=== PATIENT | female | born 1965 | race Caucasian/White ===

== ENCOUNTER 2017-10-14 07:54 | Inpatient (IN) | payer OTHER, BC ==
[2017-10-14] VITALS (14 sets, daily range): BP systolic 98–142; BP diastolic 54–70; PULSE 61–84; RESP 16–18; TEMP 94.3–100.9; O2SAT 99–100
[~2017-10-14] VITALS: Ht 167.6 cm; Wt 79.6 kg
[2017-10-14] MEDS ORDERED: ETOMIDATE 20 MG/10 ML VIAL ONE (07:58)
[2017-10-14] MEDS ORDERED: PROPOFOL 1000 MG/100 ML INJ 100 ML ONE (08:06)
[2017-10-14 08:16] LABS: AUTOMATED NEUTROPHIL # 8.2 TH/MM3 (1.8-7.7); BASOPHIL # 0.1 TH/MM3 (0-0.2); BASOPHIL % 0.7 % (0.0-2.0); EOSINOPHIL # 0.7 TH/MM3 (0-0.4); EOSINOPHIL % 4.5 % (0.0-4.0); HEMATOCRIT 31.7 % (35.0-46.0); HEMOGLOBIN 9.7 GM/DL (11.6-15.3); LYMPH % 33.4 % (9.0-44.0); LYMPHOCYTE # 5.1 TH/MM3 (1.0-4.8); MEAN CELL VOLUME 62.7 FL (80.0-100.0); MEAN CORPUSCULAR HEMOGLOBIN 19.2 PG (27.0-34.0); MEAN CORPUSCULAR HGB CONC 30.7 % (32.0-36.0); MEAN PLATELET VOLUME 9.1 FL (7.0-11.0); MONO % 7.7 % (0.0-8.0); MONOCYTE # 1.2 TH/MM3 (0-0.9); NEUT % 53.7 % (16.0-70.0); PLATELET COUNT 345 TH/MM3 (150-450); RED BLOOD COUNT 5.05 MIL/MM3 (4.00-5.30); RED CELL DISTRIBUTION WIDTH 16.7 % (11.6-17.2); WHITE BLOOD COUNT 15.2 TH/MM3 (4.0-11.0)
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
[2017-10-14] MEDS ORDERED: GELFOAM SIZE 100 ONE (08:29)
[2017-10-14] MEDS ORDERED: BUPIVACAINE/EPINEPHRINE 0.5% PF 30 ML VIAL ONE (08:29)
[2017-10-14] MEDS ORDERED: GENTAMICIN SULFATE 80 MG/2 ML VIAL ONE (08:29)
[2017-10-14] MEDS ORDERED: THROMBIN (TOPICAL) 5,000 UNIT VIAL ONE (08:32)
[2017-10-14 08:34] LABS: INTERNATIONAL NORMALIZED RATIO 1.1 RATIO; PROTHROMBIN TIME - PATIENT 10.7 SEC (9.8-11.6)
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
[2017-10-14] MEDS ORDERED: IOHEXOL 350 MG/ML 10 ML VIAL (for RAD DIAG) IVCONTRAST ONE (08:48)
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
[2017-10-14] MEDS ORDERED: levETIRAcetam 500 MG/5 ML VIAL IV ONE (08:55)
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
[2017-10-14] MEDS: levETIRAcetam INJ 500 MG in SODIUM CHLORIDE 0.9% INJ 100 ML IV SCH ×2 (08:59→21:41)
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
[2017-10-14] MEDS ORDERED: POTASSIUM CHLOR 20 MEQ PREMIX 100 ML IV PRN (10:00)
[2017-10-14] MEDS ORDERED: BISACODYL 10 MG SUPP RECTAL PRN (10:00)
[2017-10-14] MEDS ORDERED: LACTULOSE SYRUP 20 GM/30 ML CUP PO PRN (10:00)
[2017-10-14] MEDS ORDERED: SENNOSIDES 8.6 MG TAB PO PRN (10:00)
[2017-10-14] MEDS ORDERED: ALUMINUM/MAGNESIUM/SIMETH 30 ML CUP PO PRN (10:00)
[2017-10-14] MEDS ORDERED: MAGNESIUM HYDROXIDE SUSP 30 ML CUP PO PRN (10:00)
[2017-10-14] MEDS ORDERED: ACETAMINOPHEN 325 MG TAB PO PRN (10:00)
[2017-10-14] MEDS ORDERED: LABETALOL HCL 100 MG/20 ML VIAL IV PUSH PRN (10:00)
[2017-10-14] MEDS ORDERED: CALCIUM GLUCONATE INJ 1 GM in SODIUM CHLORIDE 0.9% INJ 100 ML IV PRN (10:00)
[2017-10-14] MEDS ORDERED: MAGNESIUM SULFATE INJ 2 GM in SODIUM CHLORIDE 0.9% INJ 100 ML IV PRN (10:00)
[2017-10-14] MEDS ORDERED: LORazepam 2 MG/ML VIAL IV PUSH PRN (10:00)
[2017-10-14] MEDS ORDERED: SODIUM CHLORIDE 0.9% FLUSH 10 ML FLUSH IV FLUSH PRN ×2 (10:00→10:45)
[2017-10-14] MEDS ORDERED: RESP: ALBUTEROL 2.5 MG/3 ML NEB (PRN) NEB (10:00)
--- NOTE | 2017-10-14 10:07 | PD.OP ---
Operative Report Date of Surgery: Oct 14, 2017 Preoperative Diagnosis: Severe traumatic brain injury with a large acute left frontotemporoparietal subdural hemorrhage with mass-effect and midline shift to along with herniation ; cerebral contusions with traumatic subarachnoid hemorrhage and diffuse cerebral swelling Postoperative Diagnosis: Same Procedure: Left craniotomy for acute subdural hemorrhage evacuation; left decompressive hemicraniectomy with expansive dural patch graft; ventriculostomy placement; microsurgical technique Anesthesia: General endotracheal by Ginger matute Surgeon: Pete Ordaz MD Superintendent Renting Managing(s): Cara Cano Operation and Findings: Following initiation of a general endotracheal anesthesia the patient had invasive lines and Cervantes catheter in place along with the sequential compression device. Ancef 2 g and Keppra 1 g along with the mannitol 50 g was administered intravenously and she was positioned with the left side up on a shoulder roll and head secured on a horseshoe headrest. The left fronto temporal parietal areas shaved and prepped with ChloraPrep and sterilely draped in the usual sterile fashion. A curvilinear reverse question kojo trauma incision was then made after infiltrating the scalp was 0.5% Marcaine with epinephrine solution a skin incision made extending onto the galea. Nguyen clips were used at the scalp edges for hemostasis and the flap retracted with hooks. With an automated destination coordinator katie hole was made in the left inferior temporal and frontal areas and with the craniotome the bone flap elevated exposing the frontal temporal and parietal areas. The dura was opened in a cruciate form and large acute subdural hemorrhage under pressure was identified and evacuated. There was a mid temporal pedal vein she was also noted to be actively bleeding which was cauterized for hemostasis. Bone holes were placed at the craniotomy edges and for Nurolon circumferential dural tacking sutures placed for hemostasis. Moderate degree of brain swelling was noted along the temporal lobe contusions. I elected to leave the bone flap out in order to compensate for the brain swelling which is likely to worsen over the next few days. A 10 mm MARYAM drain was and also place which was exited through a separate site and secured to the scalp. Left frontal ventriculostomy was also placed today with the blood-tinged CSF expressed and was tunneled under the scalp with a trocar and secured the exit site with 4 Nurolon stitches. DuraGen synthetic dural patch graft was used to cover the durotomy and allow for brain swelling. The temporalis muscle fascia and galea was then approximated using 2-0 Vicryl Sutures and final scalp closure was with saw. A sterile non-pressure dressing was then applied and the patient taken to the surgical intensive care unit. There were no intraoperative complications and all sponge and needle count was correct at the end of the procedure. Estimated blood loss about 200 cc. Pete Ordaz MD Oct 14, 2017 10:07
[2017-10-14] MEDS ORDERED: CHLORHEXIDINE GLUCONATE 2 % 1 PACK (2 CLOTHS) TOP PRN (10:45)
[2017-10-14] MEDS ORDERED: ENALAPRILAT 1.25 MG/ML VIAL IV PUSH PRN (10:45)
[2017-10-14] MEDS ORDERED: ONDANSETRON HCL 4 MG/2 ML VIAL IV PUSH PRN (10:45)
[2017-10-14] MEDS ORDERED: NURSING INFORMATION XX SCH (10:45)
[2017-10-14] MEDS ORDERED: MIDAZOLAM HCL 2 MG/2 ML VIAL ONE (11:04)
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
[2017-10-14] MEDS: 3% SALINE INJ 500 ML IV SCH ×2 (11:20→20:00)
[2017-10-14] MEDS ORDERED: DOCUSATE SODIUM 100 MG CAP PO SCH (11:30)
[2017-10-14] MEDS ORDERED: NOREPINEPHRINE 4 MG/4 ML AMP ONE (11:36)
--- NOTE | 2017-10-14 11:37 | RADRPT ---
EXAM DATE: 10/14/2017 11:23 AM EDT AGE/SEX: 89 years / Female INDICATIONS: Respiratory distress. CLINICAL DATA: This is the patient's subsequent encounter. Patient reports that signs and symptoms h ave been present for 2 days and indicates a pain score of Nonresponsive. MEDICAL/SURGICAL HISTORY: Non-responsive. Non-responsive. COMPARISON: [facility] – [place], CHEST SINGLE AP, 10/14/2017. . FINDINGS: Interval repositioning of the ET tube with tip now near the clavicles. Left subclavian central line w ith tip in the proximal SVC. Mild airspace disease in the left lower lung zone. No significant pneumo thorax. Bony thorax is grossly intact. CONCLUSION: 1. ETT now in good position. 2. Left subclavian central line in the SVC. 3. Left lower lung zone airspace disease likely reflecting atelectasis/contusions. 4. No significant pneumothorax. Electronically signed by: Favian Dan MD 10/14/2017 11:36 AM EDT
[2017-10-14] MEDS ORDERED: TERBUTALINE INJ 1 MG/ML AMP SQ PRN (11:45)
[2017-10-14] MEDS ORDERED: NOREPINEPHRINE INJ 4 MG in SODIUM CHLOR 0.9% 250 ML INJ 246 ML IV PRN (11:45)
[2017-10-14] MEDS ORDERED: SODIUM CHLOR 0.9% 1000 ML INJ 1,000 ML IV ONE ×3 (11:45→15:45)
[2017-10-14] MEDS ORDERED: PHENYLEPHRINE HCL 10 MG/ML VIAL IV ONE (12:00)
[2017-10-14] MEDS ORDERED: PHENYLEPH/NS 1000 MCG/10 ML SYR IV ONE (12:00)
[2017-10-14] MEDS ORDERED: ceFAZolin INJ 1,000 MG VIAL IV ONE (12:00)
[2017-10-14] MEDS ORDERED: ROCURONIUM INJ 50 MG/5 ML SYRINGE IV PUSH ONE (12:00)
[2017-10-14] MEDS ORDERED: DEXAMETHASONE SOD PHOS 4 MG/ML VIAL IV ONE (12:00)
[2017-10-14 13:42] LABS: HEMATOCRIT 27.1 % (35.0-46.0); HEMOGLOBIN 8.3 GM/DL (11.6-15.3); MEAN CELL VOLUME 61.9 FL (80.0-100.0); MEAN CORPUSCULAR HEMOGLOBIN 18.9 PG (27.0-34.0); MEAN CORPUSCULAR HGB CONC 30.6 % (32.0-36.0); MEAN PLATELET VOLUME 8.7 FL (7.0-11.0); PLATELET COUNT 336 TH/MM3 (150-450); RED BLOOD COUNT 4.38 MIL/MM3 (4.00-5.30); RED CELL DISTRIBUTION WIDTH 16.3 % (11.6-17.2); WHITE BLOOD COUNT 23.4 TH/MM3 (4.0-11.0)
[2017-10-14 14:17] LABS: BICARBONATE 19.2 MEQ/L (21.0-32.0); CREATININE 0.83 MG/DL (0.50-1.00); MAGNESIUM 1.6 MG/DL (1.5-2.5)
[2017-10-14 14:34] LABS: CALCIUM-PROTEIN CORRECTED 7.8 MG/DL (8.5-10.1); TOTAL PROTEIN 5.5 GM/DL (6.4-8.2)
[2017-10-14] MEDS: PANTOPRAZOLE SODIUM 40 MG VIAL IVP SCH (15:13)
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
[2017-10-14] MEDS ORDERED: fentaNYL DRIP 250 ML IV PRN (16:15)
[2017-10-14] MEDS ORDERED: MULT-65 PO (16:19)
[2017-10-14] MEDS ORDERED: IRON1TAB7 PO (16:19)
[2017-10-14] MEDS: SODIUM CHLOR 0.9% 1000 ML INJ 1,000 ML IV SCH (16:45)
[2017-10-14] MEDS: NOREPINEPHRINE INJ 4 MG in SODIUM CHLOR 0.9% 250 ML INJ 246 ML IV PRN (17:15)
[2017-10-14] MEDS ORDERED: RASS Change Order XX ONE (17:45)
[2017-10-14] MEDS ORDERED: ACETAMINOPHEN 1000 MG/100 ML 100 ML IV PRN (19:00)
[2017-10-14] MEDS: PROPOFOL 1000 MG/100 ML IV PRN (19:00)
[2017-10-14] MEDS: DOCUSATE SODIUM 50 MG/SENNA 8.6 MG TAB PO SCH (20:24)
[2017-10-14] MEDS: SODIUM CHLORIDE 0.9% FLUSH 10 ML FLUSH IV FLUSH SCH (21:00)
[2017-10-14] MEDS: BACITRACIN TOP OINT 15 GM TUBE TOP SCH (21:00)
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
[2017-10-15] VITALS (20 sets, daily range): BP systolic 104–140; BP diastolic 50–62; PULSE 50–76; RESP 16–18; TEMP 93.9–98.6; O2SAT 93–100
[2017-10-15] MEDS: NOREPINEPHRINE INJ 4 MG in SODIUM CHLOR 0.9% 250 ML INJ 246 ML IV PRN ×2 (01:58→19:41)
[2017-10-15] MEDS ORDERED: ATROPINE SULFATE 1 MG/10 ML SYRINGE ONE ×2 (03:38→07:14)
[2017-10-15] MEDS: CHLORHEXIDINE GLUCONATE 2 % 1 PACK (2 CLOTHS) TOP SCH (04:00)
[2017-10-15] MEDS: SODIUM CHLOR 0.9% 1000 ML INJ 1,000 ML IV SCH ×2 (04:15→19:35)
[2017-10-15] MEDS: PROPOFOL 1000 MG/100 ML IV PRN (06:00)
[2017-10-15] MEDS: 3% SALINE INJ 500 ML IV SCH ×2 (06:00→16:00)
[2017-10-15 06:05] LABS: AUTOMATED NEUTROPHIL # 11.5 TH/MM3 (1.8-7.7); BASOPHIL % 0.4 % (0.0-2.0); EOSINOPHIL % 0.1 % (0.0-4.0); HEMATOCRIT 27.9 % (35.0-46.0); HEMOGLOBIN 8.9 GM/DL (11.6-15.3); LYMPH % 5.7 % (9.0-44.0); LYMPHOCYTE # 0.8 TH/MM3 (1.0-4.8); MEAN CELL VOLUME 66.9 FL (80.0-100.0); MEAN CORPUSCULAR HEMOGLOBIN 21.5 PG (27.0-34.0); MEAN CORPUSCULAR HGB CONC 32.1 % (32.0-36.0); MONO % 7.7 % (0.0-8.0); NEUT % 86.1 % (16.0-70.0); PLATELET COUNT 165 TH/MM3 (150-450); RED BLOOD COUNT 4.17 MIL/MM3 (4.00-5.30); RED CELL DISTRIBUTION WIDTH 21.3 % (11.6-17.2); WHITE BLOOD COUNT 13.4 TH/MM3 (4.0-11.0)
[2017-10-15] MEDS ORDERED: PHENYLEPHRINE HCL 10 MG/ML VIAL ONE (06:24)
[2017-10-15 06:31] LABS: BICARBONATE 20.1 MEQ/L (21.0-32.0); CREATININE 0.68 MG/DL (0.50-1.00); MAGNESIUM 2.4 MG/DL (1.5-2.5)
[2017-10-15 06:43] LABS: CALCIUM-PROTEIN CORRECTED 8.2 MG/DL (8.5-10.1); TOTAL PROTEIN 4.9 GM/DL (6.4-8.2)
[2017-10-15] MEDS ORDERED: POTASSIUM PHOSPHATE INJ 30 MMOL in SODIUM CHLOR 0.9% 250 ML INJ 250 ML IV PRN (08:00)
[2017-10-15] MEDS ORDERED: POTASSIUM PHOSPHATE MONOBASIC 500 MG TAB PO PRN (08:00)
[2017-10-15] MEDS ORDERED: MAGNESIUM OXIDE 400 MG TAB PO PRN (08:00)
[2017-10-15] MEDS ORDERED: POTASSIUM CHLORIDE 25 MEQ EFFERVESCENT TAB PO PRN (08:00)
[2017-10-15] MEDS ORDERED: MAGNESIUM SULFATE INJ 2 GM in SODIUM CHLORIDE 0.9% INJ 96 ML IV PRN (08:00)
[2017-10-15] MEDS ORDERED: SODIUM PHOSPHATE INJ 30 MMOL in SODIUM CHLOR 0.9% 250 ML INJ 240 ML IV PRN (08:00)
[2017-10-15] MEDS ORDERED: MAGNESIUM SULFATE INJ 4 GM in SODIUM CHLORIDE 0.9% INJ 92 ML IV PRN (08:00)
[2017-10-15] MEDS ORDERED: POTASSIUM PHOSPHATE MONOBASIC 500 MG TAB PO/TUBE PRN (08:00)
[2017-10-15] MEDS ORDERED: POTASSIUM CHLOR 20 MEQ PREMIX 100 ML IV PRN ×2 (08:00)
[2017-10-15] MEDS ORDERED: POTASSIUM CHLOR 40 MEQ PREMIX 100 ML IV PRN (08:00)
[2017-10-15] MEDS: SODIUM CHLORIDE 0.9% FLUSH 10 ML FLUSH IV FLUSH SCH ×2 (09:00→20:25)
[2017-10-15] MEDS: BACITRACIN TOP OINT 15 GM TUBE TOP SCH ×2 (09:00→20:26)
[2017-10-15] MEDS ORDERED: PANTOPRAZOLE SODIUM 40 MG VIAL IVP SCH (09:00)
[2017-10-15] MEDS: DOCUSATE SODIUM 50 MG/SENNA 8.6 MG TAB PO SCH ×2 (09:00→20:25)
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
[2017-10-15] MEDS ORDERED: DOPamine 800 MG/500 ML INJ 500 ML IV PRN (09:45)
[2017-10-15] MEDS ORDERED: SODIUM CHLOR 0.9% 250 ML INJ 250 ML IV ONE (09:45)
[2017-10-15] MEDS ORDERED: TERBUTALINE INJ 1 MG/ML AMP SQ PRN (09:45)
[2017-10-15] MEDS ORDERED: ATROPINE SULFATE 1 MG/10 ML SYRINGE IV STA (10:10)
[2017-10-15 11:41] LABS: PHOSPHORUS 1.6 MG/DL (2.5-4.9)
[2017-10-15 11:43] LABS: TROPONIN I LESS THAN 0.02 NG/ML (0.02-0.05)
[2017-10-15] MEDS: PANTOPRAZOLE SODIUM 40 MG VIAL IVP SCH (12:05)
[2017-10-15] MEDS: levETIRAcetam INJ 500 MG in SODIUM CHLORIDE 0.9% INJ 100 ML IV SCH ×2 (12:06→20:58)
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
[2017-10-15] MEDS: CHLORHEXIDINE 0.12% (ORAL KIT) 15 ML CUP MT SCH (20:25)
[2017-10-16] VITALS (17 sets, daily range): BP systolic 123–134; BP diastolic 57–64; PULSE 53–62; RESP 16; TEMP 96.8–98.4; O2SAT 98–100
[2017-10-16] MEDS: CHLORHEXIDINE GLUCONATE 2 % 1 PACK (2 CLOTHS) TOP SCH (02:43)
[2017-10-16] MEDS ORDERED: DOPamine 400 MG/250 ML INJ 250 ML IV PRN (03:30)
[2017-10-16 05:15] LABS: HEMATOCRIT 31.7 % (35.0-46.0); HEMOGLOBIN 10.3 GM/DL (11.6-15.3); MEAN CELL VOLUME 70.7 FL (80.0-100.0); MEAN CORPUSCULAR HEMOGLOBIN 22.9 PG (27.0-34.0); MEAN CORPUSCULAR HGB CONC 32.4 % (32.0-36.0); MEAN PLATELET VOLUME 8.8 FL (7.0-11.0); PLATELET COUNT 151 TH/MM3 (150-450); RED BLOOD COUNT 4.49 MIL/MM3 (4.00-5.30); RED CELL DISTRIBUTION WIDTH 24.8 % (11.6-17.2); WHITE BLOOD COUNT 14.6 TH/MM3 (4.0-11.0)
[2017-10-16] MEDS: SODIUM CHLOR 0.9% 1000 ML INJ 1,000 ML IV SCH (05:15)
[2017-10-16 05:30] LABS: CALCIUM 7.4 MG/DL (8.5-10.1); CREATININE 0.51 MG/DL (0.50-1.00)
[2017-10-16 05:56] LABS: CALCIUM-PROTEIN CORRECTED 8.2 MG/DL (8.5-10.1); TOTAL PROTEIN 5.6 GM/DL (6.4-8.2)
[2017-10-16] MEDS: CHLORHEXIDINE 0.12% (ORAL KIT) 15 ML CUP MT SCH ×2 (07:49→20:00)
[2017-10-16] MEDS: POTASSIUM CHLOR 40 MEQ PREMIX 100 ML IV PRN (07:49)
[2017-10-16] MEDS: BACITRACIN TOP OINT 15 GM TUBE TOP SCH ×2 (09:00→21:00)
[2017-10-16] MEDS ORDERED: LIDOCAINE 1%/EPINEPHrine 1:100,000 SOLN 30 ML VIAL INFIL ONE (09:45)
[2017-10-16] MEDS: SODIUM CHLORIDE 0.9% FLUSH 10 ML FLUSH IV FLUSH SCH ×2 (09:48→21:00)
[2017-10-16] MEDS: PANTOPRAZOLE SODIUM 40 MG VIAL IVP SCH (09:48)
[2017-10-16] MEDS: levETIRAcetam INJ 500 MG in SODIUM CHLORIDE 0.9% INJ 100 ML IV SCH ×2 (09:48→21:00)
[2017-10-16] MEDS: DOCUSATE SODIUM 50 MG/SENNA 8.6 MG TAB PO SCH ×2 (09:48→21:00)
[2017-10-16] MEDS ORDERED: GLYCOPYRROLATE 0.2 MG/ML VIAL IV PUSH PRN (10:15)
[2017-10-16] MEDS ORDERED: LIDOCAINE 1%/EPINEPHrine 1:100,000 SOLN 30 ML VIAL ONE (10:21)
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
--- NOTE | 2017-10-16 16:39 | ECHRPT ---
Indication: BLUNT FORCE TRAUMA, BRADYCARDIA CONCLUSIONS Normal left ventricular size. Wall thickness is normal. The left ventricular systolic function is hyperdynamic with an estimated ejection fraction in the ra nge of 65- 70% Posterior mitral valve leaflet prolapse. Mild mitral valve regurgitation. There is mild tricuspid valve regurgitation. The estimated pulmonary arterial pressure is 46 mmHg. BP: / HR: Rhythm: Sinus MEASUREMENTS (Male / Female) Normal Values Technical Quality:Fair 2D ECHO LV Diastolic Diameter PLAX 4.6 cm 4.2 - 5.9 / 3.9 - 5.3 cm LV Systolic Diameter PLAX 3.1 cm IVS Diastolic Thickness 0.8 cm 0.6 - 1.0 / 0.6 - 0.9 cm LVPW Diastolic Thickness 0.8 cm 0.6 - 1.0 / 0.6 - 0.9 cm LV Relative Wall Thickness 0.3 RV Internal Dim ED PLAX 1.7 cm LVOT Diameter 2.1 cm Aortic Root Diameter 2.7 cm LA Systolic Diameter LX 2.8 cm 3.0 - 4.0 / 2.7 - 3.8 cm DOPPLER AV Peak Velocity 159.0 cm/s AV Peak Gradient 10.1 mmHg AV Mean Gradient 5.0 mmHg AV Velocity Time Integral 35.1 cm LVOT Peak Velocity 113.0 cm/s LVOT Peak Gradient 5.1 mmHg LVOT Velocity Time Integral 23.3 cm AV Area Cont Eq vti 2.3 cm AV Area Cont Eq pk 2.5 cm Mitral E Point Velocity 112.0 cm/s Mitral A Point Velocity 99.7 cm/s Mitral E to A Ratio 1.1 LV E' Lateral Velocity 12.6 cm/s Mitral E to LV E' Lateral Ratio 8.9 LV E' Septal Velocity 10.2 cm/s Mitral E to LV E' Septal Ratio 11.0 TR Peak Velocity 300.0 cm/s TR Peak Gradient 36.0 mmHg Right Atrial Pressure 10.0 mmHg Pulmonary Artery Systolic Pressu 46.0 mmHg Right Ventricular Systolic Press 46.0 mmHg PV Peak Velocity 44.4 cm/s PV Peak Gradient 0.8 mmHg FINDINGS LEFT VENTRICLE Normal left ventricular size. Wall thickness is normal. The left ventricular systolic function is hyperdynamic with an estimated ejection fraction in the ra nge of 65- 70%. RIGHT VENTRICLE Normal right ventricular size and systolic function. LEFT ATRIUM The left atrial size is normal. RIGHT ATRIUM The right atrial size is normal. ATRIAL SEPTUM No atrial level shunt is demonstrated by color flow Doppler interrogation. AORTA The aortic root and proximal ascending aorta are normal in size on limited imaging. MITRAL VALVE Posterior mitral valve leaflet prolapse. Mild mitral valve regurgitation. AORTIC VALVE Trileaflet aortic valve. No aortic valve stenosis or regurgitation. TRICUSPID VALVE There is mild tricuspid valve regurgitation. The estimated pulmonary arterial pressure is 46 mmHg. PULMONARY VALVE No pulmonary valve regurgitation or stenosis. VESSELS The inferior vena cava was not well visualized. PERICARDIUM No pericardial effusion. Boom Davis MD, FACC, FSCAI (Electronically Signed) Final Date:16 October 2017 16:38
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
[2017-10-16] MEDS: oxyCODONE HCL ORAL CONC 5 MG/0.25 ML SYRINGE PO PRN (21:01)
--- NOTE | 2017-10-16 21:45 | EKG ---
Date Performed: 10/15/2017 Time Performed: 11:45:33 PTAGE: 52 years EKG: Sinus rhythm NORMAL ECG Since the PREVIOUS TRACING , no significant change noted DOCTOR: Mariposa Bull Interpretating Date/Time 10/16/2017 21:45:09
--- NOTE | 2017-10-16 21:50 | EKG ---
Date Performed: 10/15/2017 Time Performed: 10:02:30 PTAGE: 52 years EKG: Sinus bradycardia with sinus arrhythmia. Prolonged QT interval Borderline ECG NO PREVIOUS TRACING DOCTOR: Mariposa Bull Interpretating Date/Time 10/16/2017 21:48:41
[2017-10-17] VITALS (19 sets, daily range): BP systolic 120–140; BP diastolic 53–72; PULSE 60–68; RESP 16; TEMP 98–98.8; O2SAT 98–100
[2017-10-17] MEDS ORDERED: DOPamine INJ 800 MG in SODIUM CHLORID 0.9% 500 ML INJ 495 ML IV PRN (00:45)
--- NOTE | 2017-10-17 03:01 | RADRPT ---
EXAM DATE: 10/17/2017 2:59 AM EDT AGE/SEX: 52 years / Female INDICATIONS: Shortness of breath. CLINICAL DATA: This is the patient's subsequent encounter. Patient reports that signs and symptoms h ave been present for 3 days and indicates a pain score of Nonresponsive. MEDICAL/SURGICAL HISTORY: Non-responsive. Non-responsive. COMPARISON: C, CHEST SINGLE AP, 10/14/2017. . FINDINGS: The ET tube tip is 2.2 cm from the sagrario. The NG tube is directed into the stomach. There is a left subclavian line in place with tip overlying the SVC. The heart size is normal. The lungs are grossly clear. There is some mild motion blurring. CONCLUSION: No definite acute cardiopulmonary process. Electronically signed by: Ronnie Contreras MD 10/17/2017 3:00 AM EDT
[2017-10-17] MEDS: CHLORHEXIDINE GLUCONATE 2 % 1 PACK (2 CLOTHS) TOP SCH (04:00)
[2017-10-17] MEDS: oxyCODONE HCL ORAL CONC 5 MG/0.25 ML SYRINGE PO PRN ×2 (05:20→21:30)
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
[2017-10-17 06:12] LABS: AUTOMATED NEUTROPHIL # 11.4 TH/MM3 (1.8-7.7); BASOPHIL # 0.1 TH/MM3 (0-0.2); BASOPHIL % 0.4 % (0.0-2.0); EOSINOPHIL # 0.1 TH/MM3 (0-0.4); EOSINOPHIL % 0.8 % (0.0-4.0); HEMATOCRIT 29.3 % (35.0-46.0); HEMOGLOBIN 9.6 GM/DL (11.6-15.3); LYMPH % 6.6 % (9.0-44.0); LYMPHOCYTE # 0.9 TH/MM3 (1.0-4.8); MEAN CELL VOLUME 69.9 FL (80.0-100.0); MEAN CORPUSCULAR HGB CONC 32.9 % (32.0-36.0); MEAN PLATELET VOLUME 8.6 FL (7.0-11.0); MONO % 5.6 % (0.0-8.0); MONOCYTE # 0.7 TH/MM3 (0-0.9); NEUT % 86.6 % (16.0-70.0); PLATELET COUNT 134 TH/MM3 (150-450); RED BLOOD COUNT 4.19 MIL/MM3 (4.00-5.30); RED CELL DISTRIBUTION WIDTH 24.5 % (11.6-17.2); WHITE BLOOD COUNT 13.2 TH/MM3 (4.0-11.0)
[2017-10-17 06:30] LABS: BICARBONATE 22.9 MEQ/L (21.0-32.0); CREATININE 0.54 MG/DL (0.50-1.00)
[2017-10-17] MEDS: CHLORHEXIDINE 0.12% (ORAL KIT) 15 ML CUP MT SCH ×2 (08:00→20:00)
[2017-10-17] MEDS: BACITRACIN TOP OINT 15 GM TUBE TOP SCH ×2 (09:00→21:00)
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
[2017-10-17] MEDS: PANTOPRAZOLE SODIUM 40 MG VIAL IVP SCH (09:43)
[2017-10-17] MEDS: SODIUM CHLORIDE 0.9% FLUSH 10 ML FLUSH IV FLUSH SCH ×2 (09:43→21:00)
[2017-10-17] MEDS: levETIRAcetam INJ 500 MG in SODIUM CHLORIDE 0.9% INJ 100 ML IV SCH ×2 (09:44→22:00)
[2017-10-17] MEDS: DOCUSATE SODIUM 50 MG/SENNA 8.6 MG TAB PO SCH ×2 (09:44→21:00)
[2017-10-17] MEDS: ARTIFICIAL TEARS OPTH SOLN 15 ML BTL EACH EYE SCH ×4 (10:44→20:00)
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
--- NOTE | 2017-10-17 18:31 | RADRPT ---
EXAM DATE: 10/17/2017 6:16 PM EDT AGE/SEX: 52 years / Female INDICATIONS: . Trauma. CLINICAL DATA: This is the patient's initial encounter. Patient reports that signs and symptoms have been present for 1 day and indicates a pain score of 0/10. MEDICAL/SURGICAL HISTORY: None. section. COMPARISON: [facility] [place], CT BRAIN W/O CONTRAST, 10/17/2017. . TECHNIQUE: Multiplanar, multisequence examination of the brain was performed without contrast. FINDINGS: Examination is abnormal and confirms findings on CT exam. There is a right frontal ventriculostomy in stable position with postsurgical changes of left sided craniectomy. Evolving subarachnoid hemorrhag e with very trace subdural blood products. There is diffuse cerebral edema throughout the left hemisp here with associated restricted diffusion. There is also cerebral edema and restricted diffusion invo lving the medial right frontal high convexities. Tract of intraparenchymal blood products coursing th rough the left frontal high convexities and left thalamus into the midbrain. Region of suspected infa rction in the anterior medial left cerebellar hemisphere on CT exam does not correspond to abnormalit y on MRI exam. Cerebellum is intact. Ventricles are stable in size. Visualized portions of the orbits are intact. Remainder of the exam is unchanged. CONCLUSION: 1. MRI examination confirms CT findings of acute infarction involving nearly the entire left cerebra l hemisphere and medial right frontal high convexities. 2. No evidence for cerebellar infarction as questioned on CT exam. 3. Redemonstration of postsurgical features of left craniectomy with evolving subarachnoid and subdu ral blood products. 4. Stable right frontal ventriculostomy. 5. Stable tract of hemorrhage extending through the left frontal lobe through the thalamus and midbr ain. Electronically signed by: Favian Dan MD 10/17/2017 6:30 PM EDT
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
[2017-10-18] VITALS (13 sets, daily range): BP systolic 118–137; BP diastolic 56–60; PULSE 62–70; RESP 16; TEMP 98–99.9; O2SAT 99–100
[2017-10-18] MEDS: CHLORHEXIDINE GLUCONATE 2 % 1 PACK (2 CLOTHS) TOP SCH (04:00)
[2017-10-18] MEDS: ARTIFICIAL TEARS OPTH SOLN 15 ML BTL EACH EYE SCH ×4 (04:00→12:00)
[2017-10-18 05:45] LABS: AUTOMATED NEUTROPHIL # 8.6 TH/MM3 (1.8-7.7); BASOPHIL % 0.4 % (0.0-2.0); EOSINOPHIL # 0.2 TH/MM3 (0-0.4); EOSINOPHIL % 2.3 % (0.0-4.0); HEMATOCRIT 28.6 % (35.0-46.0); HEMOGLOBIN 9.3 GM/DL (11.6-15.3); LYMPH % 8.4 % (9.0-44.0); LYMPHOCYTE # 0.9 TH/MM3 (1.0-4.8); MEAN CELL VOLUME 69.8 FL (80.0-100.0); MEAN CORPUSCULAR HEMOGLOBIN 22.8 PG (27.0-34.0); MEAN CORPUSCULAR HGB CONC 32.7 % (32.0-36.0); MEAN PLATELET VOLUME 8.6 FL (7.0-11.0); MONO % 7.1 % (0.0-8.0); MONOCYTE # 0.7 TH/MM3 (0-0.9); NEUT % 81.8 % (16.0-70.0); PLATELET COUNT 145 TH/MM3 (150-450); RED BLOOD COUNT 4.09 MIL/MM3 (4.00-5.30); RED CELL DISTRIBUTION WIDTH 25.5 % (11.6-17.2); WHITE BLOOD COUNT 10.5 TH/MM3 (4.0-11.0)
[2017-10-18 06:01] LABS: BICARBONATE 23.4 MEQ/L (21.0-32.0); CALCIUM 7.8 MG/DL (8.5-10.1); CREATININE 0.59 MG/DL (0.50-1.00)
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
[2017-10-18 08:09] LABS: KERATOCYTES OCC (NORMAL); OVALOCYTES 1+ (NORMAL); TEARDROP RBCS 1+ (NORMAL)
[2017-10-18] MEDS: CHLORHEXIDINE 0.12% (ORAL KIT) 15 ML CUP MT SCH (08:14)
[2017-10-18] MEDS: BACITRACIN TOP OINT 15 GM TUBE TOP SCH (09:00)
--- NOTE | 2017-10-18 09:22 | HHI.PR ---
Review/Management Diagnosis/Plan: (1) Acute ischemic left MCA stroke ICD Codes: I63.512 - Cerebral infarction due to unspecified occlusion or stenosis of left middle cerebral artery Status: Acute Plan: May be related to compression of the left ICA versus dissection MR brain images reviewed large area of diffusion-weighted restriction and almost the entire left hemisphere cortical region in addition to hemorrhagic injury traveling down to rostral midbrain Recommendations Neurologic exam unchanged Obtain CT of the brain and carotids Discussed with RN discussed. A low-dose propofol versus Precedex drip for comfort Discussed possibilities of residual neurologic function this large left MCA stroke in addition to traumatic brain injuries and intracranial hemorrhage. Imaging studies and EEG reviewed with him. High probability of living in a dependent state with severe neurologic deficits The son, , father, sister, brother and other siblings will contemplate and arrive at a group decision (2) TBI (traumatic brain injury) ICD Codes: S06.9X9A - Unspecified intracranial injury with loss of consciousness of unspecified duration, initial encounter Status: Acute (3) Subdural hematoma, post-traumatic ICD Codes: S06.5X9A - Traumatic subdural hemorrhage with loss of consciousness of unspecified duration, initial encounter Status: Acute Subjective Subjective Comments No acute events reported Active Medications Current Medications Medications (Trade) Dose Ordered Sig/Kurtis Route Start Time Stop Time Status Last Admin (NS Flush) 2 ml UNSCH PRN IV FLUSH 10/14/17 10:00 (NS Flush) 2 ml BID IV FLUSH 10/14/17 21:00 10/17/17 21:00 Levetriacetam 500 mg/Sodium Chloride 105 ml @ 400 mls/hr Q12H IV 10/14/17 10:00 10/17/17 22:00 (Ativan Inj) 1 mg Q1H PRN IV PUSH 10/14/17 10:00 (Mag-Al Plus Susp Liq) 30 ml Q6H PRN PO 10/14/17 10:00 Calcium Gluconate 1 gm/Sodium Chloride 110 ml @ 110 mls/hr UNSCH PRN IV 10/14/17 10:00 Potassium Chloride 100 ml @ 50 mls/hr UNSCH PRN IV 10/14/17 10:00 (Trandate Inj) 10 mg Q1H PRN IV PUSH 10/14/17 10:00 (Tylenol) 650 mg Q4H PRN PO 10/14/17 10:00 (Baciguent Oint) 1 applic BID TOP 10/14/17 21:00 10/17/17 21:00 (Albuterol Neb) 2.5 mg Q4HR NEB PRN NEB 10/14/17 10:00 (Mary Jane-Colace) 1 tab BID PO 10/14/17 21:00 10/17/17 21:00 (Milk Of Magnesia Liq) 30 ml Q12H PRN PO 10/14/17 10:00 (Senokot) 17.2 mg Q12H PRN PO 10/14/17 10:00 (Dulcolax Supp) 10 mg DAILY PRN RECTAL 10/14/17 10:00 (Lactulose Liq) 30 ml DAILY PRN PO 10/14/17 10:00 (NS Flush) 2 ml UNSCH PRN IV FLUSH 10/14/17 10:45 (Vasotec Inj) 1.25 mg Q8H PRN IV PUSH 10/14/17 10:45 (Zofran Inj) 4 mg Q6H PRN IV PUSH 10/14/17 10:45 (Protonix Inj) 40 mg Q24H IVP 10/14/17 11:00 10/17/17 09:43 ([facility]) 1 Q361D XX 10/14/17 10:45 10/14/17 10:45 (Chlorhexidine 2% Cloth) 3 pack Taper DAILY@04 TOP 10/15/17 04:00 10/11/18 03:59 10/16/17 02:43 (Chlorhexidine 2% Cloth) 3 pack UNSCH PRN TOP 10/14/17 10:45 (Brethine Inj) 1 mg UNSCH PRN SQ 10/14/17 11:45 Norepinephrine Bitartrate 4 mg/ Sodium Chloride 250 ml @ 7.5 mls/hr TITRATE PRN IV 10/14/17 16:15 10/15/17 19:41 Acetaminophen 100 ml @ 400 mls/hr Q6H PRN IV 10/14/17 19:00 10/14/17 20:24 Potassium Chloride 100 ml @ 50 mls/hr Q2H PRN IV 10/15/17 08:00 Potassium Chloride 100 ml @ 50 mls/hr Q2H PRN IV 10/15/17 08:00 (K-Lyte Cl Eff) 50 meq UNSCH PRN PO 10/15/17 08:00 Potassium Chloride 100 ml @ 25 mls/hr UNSCH PRN IV 10/15/17 08:00 10/16/17 07:49 Potassium Chloride 100 ml @ 50 mls/hr Q2H PRN IV 10/15/17 08:00 Magnesium Sulfate 4 gm/Sodium Chloride 100 ml @ 50 mls/hr UNSCH PRN IV 10/15/17 08:00 (Mag-Ox) 800 mg UNSCH PRN PO 10/15/17 08:00 Magnesium Sulfate 2 gm/Sodium Chloride 100 ml @ 50 mls/hr UNSCH PRN IV 10/15/17 08:00 (K-Phos) 2,000 mg Q4H PRN PO 10/15/17 08:00 Sodium Phosphate 30 mmol/Sodium Chloride 250 ml @ 42 mls/hr UNSCH PRN IV 10/15/17 08:00 10/15/17 20:46 (K-Phos) 2,000 mg UNSCH PRN PO/TUBE 10/15/17 08:00 Potassium Phosphate 30 mmol/ Sodium Chloride 260 ml @ 42 mls/hr UNSCH PRN IV 10/15/17 08:00 (Brethine Inj) 1 mg UNSCH PRN SQ 10/15/17 09:45 (Peridex 0.12% Liq) 15 ml BID@08,20 MT 10/15/17 20:00 10/18/17 08:14 (Robinul Inj) 0.2 mg Q8H PRN IV PUSH 10/16/17 10:15 (Roxicodone Intensol Liq) 5 mg Q4H PRN PO 10/16/17 10:15 10/17/17 21:30 Dopamine HCl 800 mg/Sodium Chloride 500 ml @ 8.46 mls/hr TITRATE PRN IV 10/17/17 00:45 10/17/17 09:48 (Tears Naturale Opth Soln) 1 drop Q4HR EACH EYE 10/17/17 09:30 10/18/17 08:00 Allergies Allergies Coded Allergies No Known Allergies (Unverified10/14/17) Review of Systems All other ROS: Unable to obtain Exam I&O / VS Vital Signs Date Time Temp Pulse Resp B/P (MAP) Pulse Ox O2 Delivery O2 Flow Rate FiO2 10/18/17 08:31 100 40 10/18/17 08:31 100 40 10/18/17 06:00 67 10/18/17 04:00 40 10/18/17 04:00 98.0 65 16 127/60 (82) 100 10/18/17 04:00 66 10/18/17 03:37 100 40 10/18/17 02:00 65 10/18/17 00:00 98.1 66 16 131/59 (83) 100 10/18/17 00:00 40 10/18/17 00:00 66 10/17/17 23:40 100 40 10/17/17 22:00 66 10/17/17 20:00 40 10/17/17 20:00 98.0 68 16 120/72 (88) 100 10/17/17 20:00 68 10/17/17 19:45 100 40 10/17/17 18:00 65 10/17/17 17:45 98 60 10/17/17 16:00 64 10/17/17 16:00 98.8 65 16 138/53 (81) 100 10/17/17 16:00 40 10/17/17 14:00 66 10/17/17 12:00 40 10/17/17 12:00 64 10/17/17 12:00 98.3 62 16 135/63 (87) 100 10/17/17 11:38 100 40 10/17/17 11:38 100 40 10/17/17 10:00 63 Exam Comments Intubated, state not following nonverbal. OD 1.5 mm nonreactive, OS 4.5 mm approximately nonreactive, no blink to threat weak doll's eye, positive gag reflex. She is able to overbreathe the vent, no involuntary movements no extremity movement plantarflex her no clonus Objective Micro and Labs Laboratory Tests Test 10/17/17 11:30 10/18/17 04:50 Sodium Level 149 146 Serum Osmolality 302 297 White Blood Count 10.5 Red Blood Count 4.09 Hemoglobin 9.3 Hematocrit 28.6 Mean Corpuscular Volume 69.8 Mean Corpuscular Hemoglobin 22.8 Mean Corpuscular Hemoglobin Concent 32.7 Red Cell Distribution Width 25.5 Platelet Count 145 Mean Platelet Volume 8.6 Neutrophils (%) (Auto) 81.8 Lymphocytes (%) (Auto) 8.4 Monocytes (%) (Auto) 7.1 Eosinophils (%) (Auto) 2.3 Basophils (%) (Auto) 0.4 Neutrophils # (Auto) 8.6 Lymphocytes # (Auto) 0.9 Monocytes # (Auto) 0.7 Eosinophils # (Auto) 0.2 Basophils # (Auto) 0.0 CBC Comment AUTO DIFF Differential Comment AUTO DIFF CONFIRMED Platelet Estimate LOW Platelet Morphology Comment NORMAL Basophilic Stippling FAINT Tear Drop Cells 1+ Ovalocytes 1+ Keratocytes OCC Blood Urea Nitrogen 11 Creatinine 0.59 Random Glucose 123 Calcium Level 7.8 Potassium Level 3.4 Chloride Level 112 Carbon Dioxide Level 23.4 Anion Gap 11 Estimat Glomerular Filtration Rate 106 Problem Qualifiers (1) Subdural hematoma, post-traumatic: Qualified Codes: S06.5X9A - Traumatic subdural hemorrhage with loss of consciousness of unspecified duration, initial encounter Ralph Garcia MD Oct 18, 2017 09:22
[2017-10-18] MEDS: DOCUSATE SODIUM 50 MG/SENNA 8.6 MG TAB PO SCH (09:56)
[2017-10-18] MEDS: levETIRAcetam INJ 500 MG in SODIUM CHLORIDE 0.9% INJ 100 ML IV SCH (09:56)
[2017-10-18] MEDS: PANTOPRAZOLE SODIUM 40 MG VIAL IVP SCH (09:56)
[2017-10-18] MEDS: SODIUM CHLORIDE 0.9% FLUSH 10 ML FLUSH IV FLUSH SCH (09:56)
[2017-10-18] MEDS ORDERED: fentaNYL DRIP 250 ML IV PRN (10:00)
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
[2017-10-18] MEDS: POTASSIUM CHLOR 40 MEQ PREMIX 100 ML IV PRN (12:14)
--- NOTE | 2017-10-18 12:56 | RADRPT ---
EXAM DATE: 10/18/2017 12:09 PM EDT AGE/SEX: 52 years / Female INDICATIONS: Possible occlusion. CLINICAL DATA: This is the patient's initial encounter. Patient reports that signs and symptoms have been present for 1 day and indicates a pain score of Nonresponsive. MEDICAL/SURGICAL HISTORY: Anemia. None. RADIATION DOSE: 26.25 CTDI (mGy) ; Combined studies COMPARISON: No prior exams available for comparison. TECHNIQUE: Volumetric scanning was performed using a multirow detector CT scanner during bolus infus ion of 75 ml Omnipaque 350 (iohexol) nonionic water-soluble contrast as a single exam dose. The da ta was postprocessed with a variety of visualization algorithms including full-volume maximum intensi ty projection, multiplanar sliding thin-slab reformation, curved-planar reformation, and surface-rend ering techniques. Using automated exposure control and adjustment of the mA and/or kV according to p atient size, radiation dose was kept as low as reasonably achievable to obtain optimal diagnostic omega lity images. FINDINGS: Aortic Arch: There is a three-vessel origin of the great vessels from the aorta. No evidence of ost ial narrowing Right Carotid: The common carotid artery is intact. The carotid bulb has a normal configuration wit hout ulceration or narrowing. The internal carotid artery lumen is smooth without stenosis. The ext ernal carotid artery is intact. Left Carotid: The common carotid artery is intact. The carotid bulb has a normal configuration with out ulceration or narrowing. The internal carotid artery lumen is smooth without stenosis. The exte rnal carotid artery is intact. Vertebrals: The vertebral arteries have a symmetric diameter. No stenotic lesions are seen. Elevated flow velocities and ICA/CCA ratios have been found to correlate with increased degrees of ve ssel stenosis, calculated as percentage of diameter relative to a normal segment of distal ICA/CCA. CONCLUSION: 1. In spite of the findings by MRI there is no carotid dissection. 2. Both carotid arteries are widely patent. 3. Both vertebral arteries are patent with the right dominant to the skull base into the basilar. Electronically signed by: Tigre Avelar MD 10/18/2017 12:55 PM EDT
[2017-10-18] MEDS ORDERED: LORazepam 2 MG/ML VIAL IV PUSH ONE ×2 (15:00→15:15)
[2017-10-18] MEDS ORDERED: MORPHINE SULFATE 8 MG/ML INJ IV PUSH ONE (15:00)
[2017-10-18] MEDS ORDERED: HYOSCYAMINE 0.5 MG/ML AMP IV PUSH ONE (15:00)
[2017-10-18] MEDS ORDERED: MORPHINE SULFATE 4 MG/ML INJ IV PUSH ONE (15:15)
[2017-10-18] MEDS ORDERED: MORPHINE SULFATE 8 MG/ML INJ IV PUSH PRN (15:30)
[2017-10-18] MEDS ORDERED: MORPHINE SULFATE 4 MG/ML INJ IV PUSH PRN (15:30)
[2017-10-18] MEDS ORDERED: LORazepam 2 MG/ML VIAL IV PUSH PRN ×2 (15:30)
[2017-10-18] MEDS ORDERED: HYOSCYAMINE 0.5 MG/ML AMP IV PUSH PRN (15:30)
[2017-10-18] MEDS ORDERED: FUROSEMIDE 20 MG/2 ML VIAL IV PUSH PRN (15:30)
--- NOTE | 2017-10-18 15:52 | RADRPT ---
EXAM DATE: 10/18/2017 11:48 AM EDT AGE/SEX: 52 years / Female INDICATIONS: Possible occlusion. CLINICAL DATA: This is the patient's initial encounter. Patient reports that signs and symptoms have been present for 4 - 6 days and indicates a pain score of Nonresponsive. MEDICAL/SURGICAL HISTORY: Anemia. Non-responsive. RADIATION DOSE: 26.25 CTDI (mGy) COMPARISON: [facility] [place], CTA CAROTID ARTERIES W 3D RECON, 10/18/2017. . TECHNIQUE: Volumetric scanning was performed using a multi-row detector CT scanner during bolus infu harry of 75 ml Omnipaque 350 (iohexol) nonionic water-soluble contrast as a single exam dose. The d dariel was post processed with a variety of visualization algorithms including full volume maximum inten sity projection, multi-planar sliding thin slab reformation, curved planar reformation, and surface r endering techniques. Using automated exposure control and adjustment of the mA and/or kV according t o patient size, radiation dose was kept as low as reasonably achievable to obtain optimal diagnostic quality images. DICOM format image data is available electronically for review and comparison. FINDINGS: Ventriculostomy is seen going from the right. There is good visualization of the intracranial vessels out the third order branches. The distal branch of the right MCA are not as well-visualized as the l eft. Both internal carotids are patent at skull base. Posterior fossa the basilar artery is patent. Both vertebral arteries are patent. CONCLUSION: 1. Intracranial vessels are patent including both carotids at the skull base in spite of the finding s of a large left hemisphere infarct. 2. CTA of the carotids is pending. Electronically signed by: Tigre Avelar MD 10/18/2017 3:51 PM EDT
[2017-10-18] MEDS ORDERED: LORazepam 2 MG/ML VIAL IV PUSH SCH (16:00)
[2017-10-18] MEDS ORDERED: MORPHINE SULFATE 4 MG/ML INJ IV PUSH SCH (16:00)
[2017-10-18] MEDS ORDERED: HEPARIN SODIUM - IV 10,000 UNITS/10 ML VIAL IV SCH (17:15)
[2017-10-18 17:20] LABS: BASOPHIL % 0.4 % (0.0-2.0); EOSINOPHIL # 0.4 TH/MM3 (0-0.4); EOSINOPHIL % 3.6 % (0.0-4.0); HEMATOCRIT 28.3 % (35.0-46.0); HEMOGLOBIN 9.3 GM/DL (11.6-15.3); LYMPH % 9.3 % (9.0-44.0); LYMPHOCYTE # 1.1 TH/MM3 (1.0-4.8); MEAN CELL VOLUME 70.8 FL (80.0-100.0); MEAN CORPUSCULAR HEMOGLOBIN 23.2 PG (27.0-34.0); MEAN CORPUSCULAR HGB CONC 32.8 % (32.0-36.0); MEAN PLATELET VOLUME 8.1 FL (7.0-11.0); MONO % 6.8 % (0.0-8.0); MONOCYTE # 0.8 TH/MM3 (0-0.9); NEUT % 79.9 % (16.0-70.0); PLATELET COUNT 158 TH/MM3 (150-450); RED BLOOD COUNT 3.99 MIL/MM3 (4.00-5.30); RED CELL DISTRIBUTION WIDTH 25.4 % (11.6-17.2); WHITE BLOOD COUNT 11.3 TH/MM3 (4.0-11.0)
[2017-10-18 17:23] LABS: BILIRUBIN, URINE NEG (NEG); BLOOD, URINE NEG (NEG); GLUCOSE,URINE NEG (NEG); KETONE, URINE NEG (NEG); MUCUS URINE FEW /lpf (OCC); NITRITE,URINE NEG (NEG); URINE COLOR YELLOW (YELLW/STRAW); URINE LEUKOCYTE ESTERASE NEG (NEG)
[2017-10-18 17:31] LABS: PROTHROMBIN TIME - PATIENT 10.1 SEC (9.8-11.6)
[2017-10-18 17:43] LABS: BLOOD UREA NITROGEN 13 MG/DL (7-18); CALCIUM 8.2 MG/DL (8.5-10.1); CHLORIDE 109 MEQ/L (98-107); CREATININE 0.47 MG/DL (0.50-1.00); GLOMERULAR FILTRATION RATE 138 ML/MIN (>89); GLUCOSE,RANDOM 106 MG/DL (74-106); SODIUM (NA) 142 MEQ/L (136-145)
[2017-10-18] MEDS ORDERED: ceFAZolin 1,000 MG/NS 100 ML IV SCH ×2 (18:00)
[2017-10-18 18:11] LABS: OVALOCYTES 1+ (NORMAL)
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
--- NOTE | 2017-10-18 20:34 | HHI.HCPN ---
Present for the compassionate withdrawal of life support. PRN meds employed to maintain comfort. Pronounced 2030. Renetta Mccarty MD Oct 18, 2017 20:34
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
== END 2017-10-18 20:31 | disposition expired | DRG 955 ==
LOC: HOR 07:54 → EDBD 08:54 → NEDA 08:54 → N03A 10:47
PROVIDERS: ADMIT Surgery; ATTEND Surgery
PROC: 009630Z Drainage of Cerebral Ventricle with Drainage Device, Percutaneous Approach (ICD-10-PCS; 2017-10-14)
PROC: 00C40ZZ Extirpation of Matter from Intracranial Subdural Space, Open Approach (ICD-10-PCS; 2017-10-14)
PROC: 00U20JZ Supplement Dura Mater with Synthetic Substitute, Open Approach (ICD-10-PCS; 2017-10-14)
PROC: 0BH17EZ Insertion of Endotracheal Airway into Trachea, Via Natural or Artificial Opening (ICD-10-PCS; 2017-10-14)
PROC: 5A1945Z Respiratory Ventilation, 24-96 Consecutive Hours (ICD-10-PCS; principal; 2017-10-14 08:25)
PROC: 009630Z Drainage of Cerebral Ventricle with Drainage Device, Percutaneous Approach (ICD-10-PCS; 2017-10-15)
DX: S27.321A Contusion of lung, unilateral, initial encounter; S32.592A Other specified fracture of left pubis, initial encounter for closed fracture; G93.5 Compression of brain; I63.512 Cerebral infarction due to unspecified occlusion or stenosis of left middle cerebral artery; J96.90 Respiratory failure, unspecified, unspecified whether with hypoxia or hypercapnia; G91.3 Post-traumatic hydrocephalus, unspecified; S27.0XXA Traumatic pneumothorax, initial encounter; J98.11 Atelectasis; V03.10XA Pedestrian on foot injured in collision with car, pick-up truck or van in traffic accident, initial encounter; Y92.410 Unspecified street and highway as the place of occurrence of the external cause; Z51.5 Encounter for palliative care; Z82.49 Family history of ischemic heart disease and other diseases of the circulatory system; I49.5 Sick sinus syndrome; F01.50 Vascular dementia, unspecified severity, without behavioral disturbance, psychotic disturbance, mood disturbance, and anxiety; H57.04 Mydriasis; D64.9 Anemia, unspecified
CPT/HCPCS: 31500; 36430; 36600; 70450; 70486; 70496; 70498; 70551; 71045; 71260; 72125; 72129; 72132; 74177; 80048; 81001; 82805; 83735; 83930; 84100; 84155; 84295; 84484; 84702; 85025; 85027; 85610; 85730; 86850; 86900; 86901; 86920; 87641; 93005; 93306; 94002; 94003; 94770; 95819; C1713; C9113; J0131; J0461; J0690; J1100; J1265; J1580; J1953; J1980; J2060; J2250; J2270; J2370; J3010; J3475; J3480; J7030; J7040; J7050; P9016; Q9967